=== PATIENT | female | born 1975 | race Caucasian/White ===

== ENCOUNTER 2020-07-24 08:30 | Inpatient (IN) | payer BC, OTHER ==
[~2020-07-24] VITALS: Ht 175.3 cm; Wt 70.3 kg
[2020-07-24] VITALS (23 sets, daily range): BP systolic 110–139; BP diastolic 69–90
[2020-07-24 09:07] LABS: URINE BILIRUBIN NEGATIVE (Negative); URINE BLOOD 2+ (Negative); URINE CLARITY HAZY; URINE COLOR YELLOW; URINE GLUCOSE-RANDOM* NEGATIVE (Negative); URINE KETONES NEGATIVE (Negative); URINE LEUKOCYTES-REFLEX NEGATIVE (Negative); URINE NITRITE-REFLEX NEGATIVE (Negative); URINE PROTEIN (DIPSTICK) NEGATIVE (Negative); URINE SPECIFIC GRAVITY >= 1.030 (1.005-1.035); URINE UROBILINOGEN 0.2 E.U./dl (0.2-1.0)
[2020-07-24 09:51] LABS: CASTS None Seen /LPF (None Seen); MUCUS >6 Heavy strn/LPF (None Seen); SQUAMOUS >10 Many /LPF (0-3)
[2020-07-24 09:52] LABS: CRYSTALS None Seen /LPF (None Seen); URINE RBC 0-2 Rare /HPF (0-2); URINE WBC-REFLEX 0-5 Rare /HPF (0-5)
[2020-07-24 10:08] LABS: ANION GAP 9 mmol/L (7-16); BUN 16 mg/dL (7-18); CALCIUM 8.8 mg/dL (8.5-10.1); CHLORIDE 104 mmol/L (98-107); CO2 22 mmol/L (21-32); GLUCOSE 110 mg/dL (74-106); SODIUM 135 mmol/L (136-145)
[2020-07-24 10:10] LABS: POTASSIUM 4.3 mmol/L (3.5-5.1)
[2020-07-24 10:16] LABS: TROPONIN-I <0.06 ng/mL (<0.06)
[2020-07-24] MEDS ORDERED: METHYLPHENIDATE20 M1 PO (10:36)
[2020-07-24] MEDS ORDERED: LEVOTHYROXINE88 MCG PO (10:37)
[2020-07-24 10:39] LABS: ABSOLUTE NEUTROPHILS 10.2 thou/uL (1.4-8.2); BASOPHILS 0.7 % (0.0-2.0); EOSINOPHILS 0.4 % (0.0-3.0); HEMATOCRIT 36.5 % (37.0-47.0); LYMPHOCYTES 8.7 % (24.0-44.0); MCH 28.7 pg (26.0-34.0); MCHC 32.8 g/dL (28.0-37.0); MCV 87.7 fL (80.0-100.0); PLATELET COUNT 309 thou/uL (150-400); POLYS 85.2 % (36.0-66.0); RBC 4.17 mil/uL (4.20-5.00); RDW 15.5 % (10.5-14.5); WBC 11.9 thou/uL (4.0-11.0)
[2020-07-24 10:58] LABS: APTT 21.7 Seconds (24.5-32.8); D-DIMER 0.8 ug/mLFEU (0.19-0.50); PROTIME 9.9 Seconds (9.3-11.4)
--- NOTE | 2020-07-24 14:15 | NUR ---
1415- Patient admitted to ICU from ED with c-collar in place. She is alert and oriented at this time. Plan for Q1 hour neuro checks.
--- NOTE | 2020-07-24 14:48 | NUR ---
45 year old female presents with pain to the head and neck after a ground level fall this morning. Pt was getting into the shower when she hit her "funny bone" and became lightheaded. Pt then woke up on the floor 15 minutes later with blood in her hair. Pt reports a lot of pain at the base of her head, worse with movement. Patient admits with a C1 cervical fracture and syncope with and elevated D-dimer and tobacco use. Neurosurgery Dr. Layne has been consulted and patient to be admitted to the ICU with C-collar in place. Patients PCP is Dr. Moisés Cartwright at [phone] listed through the [facility] but practice in [facility]. Per the record patient is listed as A&O x4. No other person yet identified as next of kin or alliance party of notification other than patient at this time. Called Dr. Cartwright's office who states patient has not had an emergency contact and they have her listed as [facility]. 75 and a [facility] policy number of [id number]. Gave this information to [facility] to investigate. Also notified [facility] of this information. CM will follow for discharge planning needs.
--- NOTE | 2020-07-24 19:34 | NUR ---
Patient maintaining critical but stable status at this time. Neuro is as documented. Neuro checks q1 hour to be continued. Cervical , thoracic, and lumbar spinal precautions. Education provided throughout the day.
[2020-07-25] VITALS (23 sets, daily range): BP systolic 112–147; BP diastolic 62–98
[2020-07-25 05:40] LABS: HEMATOCRIT 32.8 % (37.0-47.0); HEMOGLOBIN 10.9 gm/dL (12.0-15.0); MCH 29.3 pg (26.0-34.0); MCHC 33.1 g/dL (28.0-37.0); MCV 88.4 fL (80.0-100.0); RBC 3.71 mil/uL (4.20-5.00); RDW 15.1 % (10.5-14.5); WBC 6.6 thou/uL (4.0-11.0)
[2020-07-25 06:19] LABS: ALBUMIN 2.6 g/dL (3.4-5.0); CALCIUM 7.8 mg/dL (8.5-10.1); CREATININE 0.9 mg/dL (0.6-1.0); PHOSPHORUS 3.1 mg/dL (2.6-4.7)
[2020-07-25 06:21] LABS: POTASSIUM 3.1 mmol/L (3.5-5.1)
--- NOTE | 2020-07-25 07:39 | NUR ---
RHETT FROM [facility] HR LEFT A MESSAGE STATING PATIENT HAD ACTIVE INSURANCE SINCE 06/29/20. I WAS ABLE TO PULL THIS UP IN MY [employer] PORTAL AND IS ACTIVE. ALL INFORMATION HAS BEEN ENTERED AND WAS TOLD TO PATIENT AND SHE IS RESTING. I CALLED REGISTRATION AND PRINTED A NEW FACE SHEET TO THEM. A MARCELLO WILL NEED TO BE DONE. [facility]
--- NOTE | 2020-07-25 11:10 | NUR ---
DR. HUSSEIN ROUNDED AND NOTED FROM NERUOSURGY STANDPOINT PATIENT CLEARED FROM PRECAUTIONS. ABLE TO SIT UP AND AMUBLATE WITH FALL PRECUATIONS IN PLACE. C COLLAR TO REMAIN IN PLACE. PATIENT TO HAVE COLLAR FITTER BY GAIL. CLEARED FOR DIET.
--- NOTE | 2020-07-25 22:16 | NUR ---
ASSUMED CARE OF PATIENT AT 1900. ASSISTED UP TO TOILET IN ROOM, TOLERATES WELL. SLIGHTLY ANXIOUS, PRN MED GIVEN WITH DESIRED EFFECT. PAIN MANAGEMENT PLAN DISCUSSED. AGREEABLE TO CURRENT PLAN OF PO AND IV PAIN MEDS WHEN NEEDED. PATIENT AWARE SHE IS MST STATUS, MOST LIKELY WILL MOVE OUT OF ICU TONIGHT OR TOMORROW. PROGRESSING WELL TOWARDS POC GOALS.
[2020-07-26 03:55] VITALS: BP 126/91
[2020-07-26 04:54] LABS: HEMATOCRIT 33.6 % (37.0-47.0); MCH 28.9 pg (26.0-34.0); MCHC 32.7 g/dL (28.0-37.0); MCV 88.5 fL (80.0-100.0); RBC 3.79 mil/uL (4.20-5.00); RDW 15.5 % (10.5-14.5); WBC 6.6 thou/uL (4.0-11.0)
[2020-07-26 05:15] LABS: CALCIUM 8.1 mg/dL (8.5-10.1); CREATININE 0.9 mg/dL (0.6-1.0); MAGNESIUM 2.1 mg/dL (1.8-2.4); POTASSIUM 3.8 mmol/L (3.5-5.1)
--- NOTE | 2020-07-26 05:46 | NUR ---
ASSUMED CARE OF PATIENT AT 1900. VSS, AFEBRILE. UP TO BSC WITH MINIMAL ASSIST. VERY ANXIOUS AND WORRIED ABOUT DISCHARGE AND PAIN. PRN MEDS GIVEN NEEDED, RELIEF OBTAINED. STATES [facility] IS A GOOD SUPPORT SYSTEM. WILL BE STAYING WITH HIM WHILE RECOVERING. PROGRESSING TOWARDS POC GOALS.
[2020-07-26 06:12] VITALS: BP 129/91
--- NOTE | 2020-07-26 07:22 | NUR ---
ASSUMMED CARE OF PATIENT FROM THE NIGHT NURSE, NICOLAS HERNANDEZ.
[2020-07-26 07:40] VITALS: BP 124/87
--- NOTE | 2020-07-26 10:46 | NUR ---
ASSESSMENT-PT SAYS SHE HIT HER FUNNY BONE IN BATHROOM AREA & FELL LOSING CONSCIOUSNESS. PT WORKS FOR [employer] & WAS INDEPENDENT PRIOR TO THE ACCIDENT. SHE PLANS TO GO STAY WITH HER FIANCEE AT DC, LUDMILA ORTIZ. ANTICIPATE DC ONCE MEDICALLY STABLE. I HAVE LEFT 2 MESAGES FOR PT TO DEMETRIUS ME RELATED TO DC PLANNING.
[2020-07-26] MEDS ORDERED: CYCLOBENZAPRINE5 MG PO (11:20)
[2020-07-26] MEDS ORDERED: HYDROCODON-ACE1 EAC7 PO (11:21)
[2020-07-26] MEDS ORDERED: MIRALAX17 GM PO (11:21)
[2020-07-26] MEDS ORDERED: COLACE100 MG PO (11:21)
[2020-07-26 11:37] VITALS: BP 156/85
--- NOTE | 2020-07-26 15:23 | NUR ---
PATIENT UP AND ABOUT IN ROOM WITH C-COLLAR IN PLACE. CALLED INTO THE ROOM AT 1450 PATIENT FELT NAUSEATED AND LIGHT HEADED. BP 152/116. ONCE PATIENT FEELING BETTER ASSISTED TO COMMODE AND THEN BACK TO BED. PAIN MANAGEMENT REGIME EFFECTIVE UNLESS SHE HAS SUDDEN MOVEMENT. WILL CONTINUE TO MONITOR.
[2020-07-26 15:32] VITALS: BP 101/64
--- NOTE | 2020-07-26 16:15 | NUR ---
[employer] REP HERE TO FIT PATIENT WITH CERVICAL BRACE WITH S/O AT BEDSIDE TO RECEIVE INSTRUCTIONS ALSO.
[2020-07-26 16:31] VITALS: BP 124/87
== END 2020-07-26 16:50 | disposition home or self-care (01) | DRG 552 ==
LOC: ER 08:30 → EROBS 12:27 → ICU 12:27
PROVIDERS: Emergency Medicine; ADMIT Surgery; ATTEND Surgery
PROC: 0HQ0XZZ Repair Scalp Skin, External Approach (ICD-10-PCS; principal; 2020-07-24)
DX: S12.000A Unspecified displaced fracture of first cervical vertebra, initial encounter for closed fracture (principal); S06.0X9A Concussion with loss of consciousness of unspecified duration, initial encounter; E03.9 Hypothyroidism, unspecified; S01.01XA Laceration without foreign body of scalp, initial encounter; Z87.891 Personal history of nicotine dependence; F90.9 Attention-deficit hyperactivity disorder, unspecified type; R13.10 Dysphagia, unspecified; Z23 Encounter for immunization; Z88.0 Allergy status to penicillin; Z88.2 Allergy status to sulfonamides; X58.XXXA Exposure to other specified factors, initial encounter; Y93.89 Activity, other specified; Y92.89 Other specified places as the place of occurrence of the external cause; Y99.8 Other external cause status; W18.39XA Other fall on same level, initial encounter
CPT/HCPCS: 10078